=== PATIENT | male | born 1990 | race Caucasian/White ===

== ENCOUNTER 2019-09-25 16:52 | Emergency (ER) | payer OTHER ==
[~2019-09-25] VITALS: Ht 175.3 cm; Wt 78.2 kg
[2019-09-25] MEDS ORDERED: ADACEL/BOOSTRIX VACCINE (DIPHTH/PERTUSS/ACELL/TETANUS)0.5ML SYR (90715) IM ONE (18:00)
[2019-09-25] MEDS ORDERED: NEOSPORIN OINT 0.9 GM PKT (FLOOR STOCK) TOP ONE (18:00)
[2019-09-25] MEDS ORDERED: LIDOCAINE 2% MDV 20 ML VIAL SC ONE (18:00)
[2019-09-25 18:45] VITALS: BP 133/70
--- NOTE | 2019-09-25 20:16 | REP ---
RIGHT 3RD DIGIT: Five views of the right 3rd digit are performed and demonstrate no evidence of acute fracture, dislocation, or intrinsic bone disease. IMPRESSION: No fracture or dislocation. Electronically Signed by Luis Perkins MD 09/26/2019 03:41 P
== END 2019-09-25 18:58 | disposition home or self-care (01) ==
LOC: M ED 16:52
DX: S67.192A Crushing injury of right middle finger, initial encounter (principal); S61.212A Laceration without foreign body of right middle finger without damage to nail, initial encounter; W23.1XXA Caught, crushed, jammed, or pinched between stationary objects, initial encounter; Y92.148 Other place in prison as the place of occurrence of the external cause; Y93.B3 Activity, free weights; Y99.8 Other external cause status; Z87.891 Personal history of nicotine dependence; Z87.81 Personal history of (healed) traumatic fracture; Z23 Encounter for immunization